=== PATIENT | male | born 1960 | race Caucasian/White ===

== ENCOUNTER 2024-12-24 08:31 | Emergency (ER) | payer MEDICAID, MEDICARE ==
[~2024-12-24] VITALS: Ht 180.3 cm; Wt 64.9 kg
--- NOTE | 2024-12-24 09:22 | Physician Documentation ---
History of Present Illness ~ Chief Complaint: Bite-animal Stated Complaint: HAND SWELLING Time Seen by MD: 09:00 OK to notify your PCP?: Yes Primary Medical Doctor: PRESLEY KILPATRICK Source: patient Mode of Arrival: POV Exam Limitations: no limitations HPI 64-year-old male presents with dog bite to left hand with multiple puncture velazquez. He reports that this happened yesterday by a neighbor's dog. He is unsure of the vaccine status of the animal. His hand is quite swollen and painful and has some purulent drainage out of 1 of the puncture velazquez. Denies any fevers or chills, nausea vomiting or diarrhea. Medication Reconciliation Allergies: Coded Allergies: No Known Allergies (Unverified , 12/24/24) Scheduled Amox Tr/Potassium Clavulanate (Augmentin 875-125 Tablet), 1 TAB PO Q12H Past Medical History Past Medical History: No Pertinent History Past Surgical History: other Alcohol Use: Abuse Drug Use: none Occupation: unemployed Review of Systems All Other Systems at this time: Reviewed and Negative Physical Exam Vital Signs: RN Vital Signs have been reviewed: Yes, Temperature: 97.8, Source: Oral, Heart Rate: 87, Respiratory Rate: 18, BP: 141/83, Pulse Oximetry: 99, Weight: 64.900 Oxygen Flow Rate: 0 Pulse Oximetry Reflects: adequate oxygenation Physical Exam General: Alert, no distress. HEENT: No injection, moist mucous membranes. Neck: Full range of motion. Respiratory: No respiratory distress, equal chest rise and fall. Chest: No accessory muscle use. Cardiovascular: Regular rate and rhythm. Gastrointestinal: Nondistended. Extremities: Normal range of motion, no deformity. Good sensation, good CSM and right hand. Neurologic: Oriented x4. Psychiatric: Normal mood and affect. Skin: Left hand edema and redness with 2 puncture velazquez to the top of the hand and 1 to the palm with purulent drainage. Progress Results/Orders Reviewed/noted all lab results: Yes Results/Orders Orders - ISABELA RODRÍGUEZ * Additional Wound Care Orders (12/24/24 09:24) Completed Orders - ISABELA RODRÍGUEZ Rabies Vaccine (Pcec)/Pf (Rabavert Rabie (12/24/24 09:25) Rabies Immune Globulin/Pf Inj (Hyperrab (12/24/24 09:24) Amox Tr/Potassium Clavulanate (Augmentin (12/24/24 09:25) Vital Signs 12/24/24 12/24/24 08:35 09:46 Temp 97.8 97.4 Pulse 87 74 Resp 18 18 B/P (MAP) 141/83 150/79 (102) Pulse Ox 99 96 O2 Flow Rate 0 0 Medical Decision Making Additional info obtained from: old records Findings 64-year-old male with cellulitis to the left hand after a dog bite. I will place him on Augmentin which was sent to his pharmacy. There is no need for closure of the wounds as they have already mainly closed. His vital signs are stable and he is nontoxic appearing. Since he is unsure of the dog's vaccine status, I ordered the rabies vaccine as well the as rabies immunoglobulin. Unfortunately the patient eloped the department from the lobby prior to the administration and prior to his discharge instructions and paperwork. I did still sent his prescription for Augmentin over to the pharmacy. Differential Dx:Considerations: Include: Abrasion, Cellulitis, Fracture, Hematoma, Laceration, Neurovascular injury Departure Disposition: 07 LEFT AWOL/ELOPED Impression: Primary Impression: Dog bite Additional Impressions: Cellulitis Eloped from emergency department Referrals: NO PRIMARY CARE PROVIDER (PCP) Prescriptions Amox Tr/Potassium Clavulanate (Augmentin 875-125 Tablet) 1 Each Tablet 1 TAB PO Q12H for 10 Days, #20 TAB Prov: ISABELA RODRÍGUEZ 12/24/24 Additional Comment Medical Screen Exam This patient recieved a medical screening examination. After reviewing the individual's medical complaints with presenting symptoms and performing an appropriate physical examination, it was determined that no immediate life- threatening emergency medical condition is present. This individual is also not a women having contractions. Signature Scribe Signature: . Attestation: Scribed for Isablea Rodríguez by Isabela Tom NP . 12/24/24 10:53 Parts of this note were created using [employer] voice recognition software program. While efforts were made to correct any mistakes made by this voice recognition software program, nonsensical phrases may remain in this note. In addition, there may be errors and syntax, grammar, content and spelling. ISABELA RODRÍGUEZ Dec 24, 2024 09:22
[2024-12-24] MEDS ORDERED: rabies immune globulin/PF 150 unit/ml inj IMVAC STA (09:24)
[2024-12-24] MEDS ORDERED: amox tr/potassium clavulanate 875/125mg TAB PO ONE (09:25)
[2024-12-24] MEDS ORDERED: AMOX-117 PO (09:26)
[2024-12-24 09:46] VITALS: BP 150/79; PULSE 74; RESP 18; O2SAT 96
[2024-12-24 11:33] VITALS: TEMP 97.4
== END 2024-12-24 11:34 | disposition left against medical advice (07) ==
LOC: ER 08:32
DX: L03.116 Cellulitis of left lower limb (principal); W54.0XXA Bitten by dog, initial encounter; Z56.0 Unemployment, unspecified; F10.10 Alcohol abuse, uncomplicated; Y90.9 Presence of alcohol in blood, level not specified
CPT/HCPCS: 99283